=== PATIENT | male | born 1965 | race Two or more races ===

== ENCOUNTER 2016-12-18 12:53 | Day surgery (SDC) | payer OTHER ==
[2016-12-16 17:08] LABS: HEMOGLOBIN 17.5 g/dL (13.6-17.8)
[2016-12-16 17:11] LABS: BUN (BLOOD UREA NITROGEN) 19 MG/DL (6-23); CHLORIDE, SERUM 103 MMOL/L (96-112); CO2 (CARBON DIOXIDE) 30 MMOL/L (24-34); CREATININE 1.15 MG/DL (0.70-1.30); GFR AFRICAN AMERICAN 84 ML/MIN (>=60); GFR NON AFRICAN AMERICAN 73 ML/MIN (>=60); GLUCOSE, SERUM 137 MG/DL (60-99); HEMATOCRIT 48.9 % (40.0-51.0); POTASSIUM, SERUM 3.7 MMOL/L (3.5-5.3); SODIUM, SERUM 137 MMOL/L (135-148)
[2016-12-16 17:13] LABS: INTERNATIONAL NORMAL RATI 1.1 UNITS (-); PARTIAL THROMBO TIME 33.1 SEC (22.5-37.2); PROTIME (NOT ORD) 13.9 SEC (12.0-14.5)
[~2016-12-18] VITALS: Ht 172.7 cm; Wt 100.7 kg
--- NOTE | ~2016-12-18 | OP ---
Record Of Operation [facility] [address] [place]. [address] NAME: KELLY PANTOJA : 61 STATUS : [facility]#: [id number] AGE: 51 ADM/REG DATE : 12/18/16 MR#: [id number] REPORT SERV DATE: 01/20/17 DICTATED BY: DATE: REPORT STATUS : Draft TRANSCRIBED BY: MODL DATE: 01/20/17 DATE OF PROCEDURE: 12/18/2016 PREOPERATIVE DIAGNOSIS: Painful benign soft tissue lesion, submetatarsal head 2 and 3, right foot. POSTOPERATIVE DIAGNOSIS: Painful benign soft tissue lesion, submetatarsal head 2 and 3, right foot. NAME OF OPERATION: Excisional biopsy of painful benign lesion submetatarsal head, 2 and 3, right foot. ANESTHESIA: General. HEMOSTASIS: Pneumatic ankle tourniquet. ESTIMATED BLOOD LOSS: Less than 5 mL. PROCEDURE IN DETAIL: Under mild sedation, patient brought to the operating room, placed on the operating table in supine position. A pneumatic ankle tourniquet was placed about the patient's right ankle. Following IV sedation, the foot was scrubbed, prepped, and draped in the usual aseptic manner. An Esmarch bandage utilized to exsanguinate the patient's right foot. Pneumatic ankle tourniquet was inflated to 250 mmHg. Attention then directed to the plantar aspect of metatarsal heads 2, right foot, with a circular incision was made around the circumference of the lesion. The incision was deepened using blunt dissection. Care was taken to identify and retract all vital neurovascular structures. All bleeders cauterized as necessary. Using a curette, the lesion was lifted in its entirely from the soft tissue and passed from the operative field and sent to pathology for identification. The lesion measured approximately 2.2 cm x 1.7 cm in diameter. The base of the operative site was cauterized extensively. The wound was then flushed with copious amounts of normal sterile saline. Attention then directed to the lesion under the metatarsal head 3, right foot, where a circular incision was made around the circumference of the lesion. The lesion was further dissected from its attachments with the curette. The lesion was resected in its entirety and passed from the operative field and sent to pathology for identification. The lesions measured approximates 1.7 cm x 1.2 cm in diameter. The base of the wound was cauterized extensively. The operative sites were covered with Xeroform gauze, and a compressive dressing consisting of 4x4s, ABD pad, and conform gauze wrap. Pneumatic ankle tourniquet was then deflated and a prompt hyperemic response was noted to all digits of the right foot. An Clive wrap and postop shoe were then applied. The patient tolerated the procedure and anesthesia well. He was transferred to recovery room with vital signs stable and vascular status intact to all digits of the right foot. Following a period of postop monitoring, the patient discharged home on written and oral postop instructions. 1. Keep dressing dry and intact. 2. Avoid excessive ambulation. 3. Ice and elevate right foot when at rest. 4. Wear surgical shoe at all times when ambulating. Record Of Operation [facility] [address] [place]. [address] NAME: KELLY PANTOJA : 61 STATUS : [facility] PAT#: [id number] AGE: 51 ADM/REG DATE : 12/18/16 MR#: [id number] REPORT SERV DATE: 01/20/17 DICTATED BY: DATE: REPORT STATUS : Draft TRANSCRIBED BY: KIMI DATE: 01/20/17 5. The patient to use crutches to remain nonweightbearing on right foot. 6. The patient to contact Dr. Christie for all postop followup care and if any problems arise. LUCIE Raffaele Christie DPM / [id number] CC: FLAVIO Stevens
[~2016-12-18 12:53] MED LIST: ESTROGEN; FLEX PO; NUEDEXTA 20/10; PROVHFA INH; TESTOSTERONE IM; VALTREX5 PO; ZANTAC150 MG PO
== END 2016-12-18 17:45 | disposition home or self-care (01) ==
LOC: SDC 12:53
PROVIDERS: Podiatrist
PROC: 0HBMXZZ Excision of Right Foot Skin, External Approach (ICD-10-PCS; principal; 2016-12-18 13:45)
DX: L85.8 Other specified epidermal thickening (principal); G47.33 Obstructive sleep apnea (adult) (pediatric); F43.10 Post-traumatic stress disorder, unspecified; G89.29 Other chronic pain; Z99.89 Dependence on other enabling machines and devices; Z79.899 Other long term (current) drug therapy; Z98.890 Other specified postprocedural states
CPT/HCPCS: 80048; 82962; 85014; 85018; 85610; 85730; 88304; 93005; A9270-GY; J2250; J2405; J3010